=== PATIENT | female | born 1985 | race Caucasian/White ===

== ENCOUNTER → 2017-10-31 16:01 | Outpatient (CLI) | payer BC, SELFPAY ==
[2017-10-08 14:04] VITALS: BP 123/83; BMI 33.6
[2017-11-06 12:46] LABS: PARVOVIRUS B19 IGG 4.5 index (0.0-0.8); PARVOVIRUS B19 IGM 0.1 index (0.0-0.8)
== END ==
PROVIDERS: Visit Provider Obstetrics & Gynecology
DX: Z20.828 Contact with and (suspected) exposure to other viral communicable diseases (principal)
CPT/HCPCS: 36415; 86747

== ENCOUNTER → 2017-11-29 15:26 | Outpatient (CLI) | payer BC, SELFPAY ==
[2017-11-29 16:17] LABS: Absolute Lymphocyte Count 1.95 X10^3/ul (0.83-4.51); Absolute Neutrophil Count 10.7 X10^3/uL (2.0-7.7); Basophil# 0.04 X10^3/uL; Basophil% 0.3 % (0-1); Eosinophil# 0.17 X10^3/uL; Eosinophils% 1.2 % (0-5); Hemoglobin 12.2 g/dl (12.0-15.0); Lymphocyte # 1.95 X10^3/ul (4.0); Lymphocyte % 13.9 % (19-41); Mean Corpuscular Hgb 28.4 pg (27.0-32.0); Mean Corpuscular Volume 86.2 fL (81-99); Mean Platelet Vol. 10.2 fl (6.2-12.0); Monocyte# 0.96 X10^3/uL; Monocyte% 6.9 % (0-10); Neutrophil % 76.6 % (47-70); Platelet Count 281 K/mm3 (150-450); RBC Distribution Width CV 14.7 % (11.6-14.6); RBC Distribution Width SD 45.2 fl (35.1-43.9); Red Blood Count 4.29 M/mm3 (4.2-5.4)
[2017-11-29 16:18] LABS: POSITIVE COUNT NO; POSITIVE DIFFERENTIAL NO; POSITIVE MORPHOLOGY NO
[2017-11-29 16:45] LABS: Glucose Challenge Gest 1H 50g 104 mg/dL (70-140)
== END ==
PROVIDERS: Visit Provider Obstetrics & Gynecology
DX: O09.A0 Supervision of pregnancy with history of molar pregnancy, unspecified trimester (principal); Z3A.00 Weeks of gestation of pregnancy not specified
CPT/HCPCS: 36415; 82950; 85025

== ENCOUNTER 2017-12-13 16:49 | Emergency (ER) | payer BC, SELFPAY ==
[2017-12-13 16:50] VITALS: BP 155/86; PULSE 101; RESP 18; TEMP 37; O2SAT 99; BMI 34.9
--- NOTE | 2017-12-13 16:56 | NURSING ---
NO OLD EKGS
--- NOTE | 2017-12-13 17:08 | EKG12_ITS ---
Test Reason : PALPS Blood Pressure : / mmHG Vent. Rate : 085 BPM Atrial Rate : 085 BPM P-R Int : 166 ms QRS Dur : 078 ms QT Int : 368 ms P-R-T Axes : 027 026 004 degrees QTc Int : 437 ms Normal sinus rhythm Normal ECG Confirmed by RENE ALVARADO MD ([id number]), online content editor DIXIE BRIGHT ([id number]) on 12/14/2017 2:29:05 PM Referred By: SAL Confirmed By:RENE ALVARADO MD
--- NOTE | 2017-12-13 17:14 | NURSING ---
NO OLD EKGS
--- NOTE | 2017-12-13 17:33 | ED.VISSUMM ---
- ER Visit Summary Date of Service: 12/13/17 Chief Complaint: Heart racing History of Present Illness: The patient is a 32 F presents to the emergency department with racing heart. The patient is currently approximately 30 weeks . She states about 3 or 4 weeks ago, she was in class and had the sensation as of her heart was racing. She states another friend took her pulse and was in the 180s. It resolved after about 2 minutes. Today, it happened again. She was actually at her PHYSICIAN GYNECOLOGIST's office. They did take her pulse and was 186. She states it lasted about 5 minutes. She states that she bear down and held her breath and the symptoms resolved. She has had no chest pain or dyspnea. She denies any history of coronary vascular disease. She states she has never had anything like this before her prior pregnancies. She states it feels like she is back to her normal self. Physical Examination: Vital signs reviewed General: Well-nourished, well-developed Head: Normocephalic, atraumatic Eyes: Pupils equal and reactive, extraocular muscles intact Neck, supple, no lymphadenopathy Heart: Regular rate and rhythm Respiratory: No distress, clear bilaterally Abdomen: Soft, nontender, nondistended, no peritoneal signs Back: Nontender Extremities: Nontender, no edema, no cords Skin: Normal color no rash Neuro: Alert and oriented, no focal or lateralizing deficits Test Results: EKG demonstrates sinus rhythm at a rate of 85. Screening labs show mild leukocytosis but otherwise unremarkable. Chest x-ray unremarkable. Emergency Department Course and Treatment: The patient presents with reported heart racing. My concern was for SVT, but she has maintained sinus rhythm while here. Her metabolic workup is unremarkable. I discussed the patient with Dr. Rivera. Given her history, he was comfortable with my plan for Holter monitor. We are going to hold on medications given her advanced . The patient was also discussed with Dr. Sharan Carson who is aware of the plan. At this time, I do for the patient is safe for discharge. She has had no other symptoms. She is not dyspneic. She was counseled on concerning symptoms and reasons to return. The patient will be discharged home. Treatment Plan: [] Disposition: Discharge Impression: 1. Tachycardia-resolved This note was generated with Illumite[employer]ation software. It may contain incorrect words, spelling, and punctuation that were not noted in review of the chart prior to signing ED Disposition - Plan for ED Patient: Chief Complaint: Palpitations Instructions: ED Tachycardia Pat PSVT Referrals: Melba Andrea MD [STAFF PHYSICIAN] -
--- NOTE | 2017-12-13 17:33 | NURSING ---
PAGED DR OSMAN
--- NOTE | 2017-12-13 17:40 | RAD_ITS ---
STUDY: X-RAY CHEST REASON FOR EXAM: Female, 32 years old. SENT FROM DR WATSON'S OFFICE FOR HR 186. DENIES HX. PATIENT 30 WEEKS , WRAP AROUND WAIST SHIELD USED AND ROLLING WAIST SHIELD TECHNIQUE: PA and lateral views of the chest. COMPARISON: None. FINDINGS: Cardiac monitoring leads are present. Low lung lines are noted. There is mild hypoventilatory change seen at the lung bases. There is no evidence of interstitial or alveolar edema. There is no demonstrated pleural abnormality. Normal size heart. Normal mediastinum and mary. Normal visualized pulmonary arteries. Normal visualized aortic arch and descending thoracic aorta. Normal visualized thoracic spine. Normal visualized ribs, clavicles, and shoulders. There is no demonstrated abnormality of the visualized soft tissue structures of the upper abdomen. RAD/Chest PA and Lateral IMPRESSION: Low lung volumes. No evidence of failure. Normal heart size. Electronically Signed: Adenike Correa MD at 18:09 EDT Tel , Service support ,
[2017-12-13 17:50] LABS: ALB/GLOB Ratio 0.7 RATIO (0.9-2.4); AST(SGOT) 14 U/L (15-37); Alanine Aminotransfer ALT/SGPT 19 U/L (13-56); Albumin, Serum 2.8 g/dL (3.2-5.0); Alkaline Phosphatase 80 U/L (45-117); Anion Gap 9 (5-15); BUN 9 mg/dL (7-18); BUN/Creat Ratio 17.7 RATIO (10-20); Calcium,Total 9.3 mg/dL (8.5-10.1); Chloride 105 mmol/L (98-107); Creatinine, Serum 0.51 mg/dL (0.55-1.02); EST Glomerular Filtration Rate 147 mL/min (>60); Est Glom Filt Rate - Afr Amer 178 mL/min (>60); Estimated Creatinine Clearance 156.79 ml/min; Globulin 4.3 g/dL (2.2-4.2); Glucose 72 mg/dL (74-106); Potassium 3.8 mmol/L (3.5-5.1); Protein, Total 7.1 g/dL (6.4-8.2); Sodium Level 137 mmol/L (136-145); Thyroid Stim Hormone (TSH) 1.95 uIU/mL (0.358-3.74)
[2017-12-13 17:54] LABS: Absolute Lymphocyte Count 2.17 X10^3/ul (0.83-4.51); Absolute Neutrophil Count 13.9 X10^3/uL (2.0-7.7); Basophil# 0.06 X10^3/uL; Basophil% 0.3 % (0-1); Eosinophil# 0.18 X10^3/uL; Hematocrit 40.8 % (37-47); Hemoglobin 13.7 g/dl (12.0-15.0); Lymphocyte # 2.17 X10^3/ul (4.0); Lymphocyte % 12.2 % (19-41); Mean Corp Hgb Conc 33.6 g/gl (32-36); Mean Corpuscular Hgb 28.6 pg (27.0-32.0); Mean Corpuscular Volume 85.2 fL (81-99); Mean Platelet Vol. 10.4 fl (6.2-12.0); Monocyte# 1.22 X10^3/uL; Monocyte% 6.9 % (0-10); Neutrophil # 13.93 X10^3/uL (2.7-7.7); Neutrophil % 78.5 % (47-70); Platelet Count 321 K/mm3 (150-450); RBC Distribution Width CV 14.6 % (11.6-14.6); RBC Distribution Width SD 43.9 fl (35.1-43.9); Red Blood Count 4.79 M/mm3 (4.2-5.4); White Blood Count 17.8 K/mm3 (4.4-11.0)
[2017-12-13 17:55] LABS: POSITIVE COUNT NO; POSITIVE DIFFERENTIAL NO; POSITIVE MORPHOLOGY NO
[2017-12-13 18:39] VITALS: BP 147/74; PULSE 93; RESP 20; O2SAT 99
== END 2017-12-13 18:40 | disposition home or self-care (01) ==
PROVIDERS: Emergency Provider Emergency Medicine; Family Provider Nurse Practitioner; PCP Nurse Practitioner
DX: O99.413 Diseases of the circulatory system complicating pregnancy, third trimester (principal); R00.0 Tachycardia, unspecified; Z79.899 Other long term (current) drug therapy; Z3A.30 30 weeks gestation of pregnancy
CPT/HCPCS: 71046; 80053; 83735; 84443; 85025; 93005; 93225; 96360; 99284; J7030; J7040

== ENCOUNTER → 2017-12-13 18:04 | Outpatient (CLI) | payer BC, SELFPAY | PROVIDERS: Family Provider Nurse Practitioner; PCP Nurse Practitioner; Visit Provider Emergency Medicine | DX: Z00.00 Encounter for general adult medical examination without abnormal findings (principal) ==

== ENCOUNTER → 2017-12-13 18:36 | Outpatient (CLI) | payer BC, SELFPAY ==
--- NOTE | 2017-12-13 18:41 | US_ITS ---
STUDY: SECOND AND THIRD TRIMESTER OBSTETRICAL ULTRASOUND - LIMITED REASON FOR EXAM: Female, 32 years old. growth LMP: October 08, 2017 PRIOR ULTRASOUND: Prior comparison studies are not available for review at this time. TECHNIQUE: Transabdominal ultrasound evaluation was performed. FINDINGS: There is a single intrauterine fetus. The fetus is in a cephalic presentation. There is demonstrated cardiac activity with a heart rate of 128 bpm. There is a normal amniotic fluid volume. The largest amniotic fluid pocket measures 5.5 x 3.4 cm. The amniotic fluid index (NONA) is 15.73 cm. The placenta is posterior in location and is not low lying. There are Grade 1 placental changes. The cervix measures 4.3 cm in length. BIOMETRY: BPD: 7.81 cm: 31 weeks, 3 days HC: 28.89 cm: 31 weeks, 6 days AC: 27.24 cm: 31 weeks, 3 days FL: 6.06 cm: 31 weeks, 4 days Age by LMP: 30 weeks, 3 days. MAGGIE by LMP: February 18, 2018. MAGGIE by prior US: February 14, 2018. age by current US: 31 weeks, 4 days. MAGGIE by current US: February 10, 2018. Estimated weight: 1764 grams, +/- 258 grams, 72 percentile. US/OB Limited With Biometrics IMPRESSION: Live intrauterine gestation of approximately 31 weeks 4 days with expected intrauterine growth. Estimated date of delivery by ultrasound February 10, 2018 Electronically Signed: Adenike Correa MD at 22:25 EDT Tel , Service support ,
== END ==
PROVIDERS: Family Provider Nurse Practitioner; PCP Nurse Practitioner; Visit Provider Nurse Practitioner Women's Health
DX: O28.1 Abnormal biochemical finding on antenatal screening of mother (principal); O09.A0 Supervision of pregnancy with history of molar pregnancy, unspecified trimester; Z3A.00 Weeks of gestation of pregnancy not specified
CPT/HCPCS: 76816

== ENCOUNTER 2018-01-03 16:55 | Outpatient (CLI) | payer BC, SELFPAY ==
[2018-01-03 17:03] VITALS: BMI 35.5
[2018-01-03 17:50] LABS: Hematocrit 40.3 % (37-47); Hemoglobin 13.1 g/dl (12.0-15.0); Mean Corp Hgb Conc 32.5 g/gl (32-36); Mean Corpuscular Hgb 28.1 pg (27.0-32.0); Mean Corpuscular Volume 86.3 fL (81-99); Mean Platelet Vol. 10.3 fl (6.2-12.0); Platelet Count 293 K/mm3 (150-450); RBC Distribution Width CV 14.1 % (11.6-14.6); RBC Distribution Width SD 43.8 fl (35.1-43.9); Red Blood Count 4.67 M/mm3 (4.2-5.4); White Blood Count 14.9 K/mm3 (4.4-11.0)
[2018-01-03 17:53] LABS: Scan Indicated on CBC? Y/N NO
[2018-01-03] MEDS: Betamethasone/Betamethasone 30 MG/5 ML Vial 12 MG IM (18:09)
[2018-01-03 18:16] LABS: AST(SGOT) 14 U/L (15-37); Alanine Aminotransfer ALT/SGPT 16 U/L (13-56); Creatinine, Serum 0.63 mg/dL (0.55-1.02); EST Glomerular Filtration Rate 115 mL/min (>60); Est Glom Filt Rate - Afr Amer 139 mL/min (>60); Estimated Creatinine Clearance 126.93 ml/min; Uric Acid 2.8 mg/dL (2.6-6.0)
[2018-01-03 18:38] LABS: Prothrombin Time (Protime)PT. 12.9 SECONDS (11.7-14.9)
[2018-01-03 18:39] LABS: Partial Thromboplast Time 27.5 Seconds (24.1-36.2)
[2018-01-03 19:27] LABS: Protein, Urine (Random) 6.9 mg/dL (<11.9); Protein:Creat Ratio 140 mg/g CRE (0-200)
--- NOTE | 2018-01-05 00:46 | OB.TRI.HP_ITS ---
History of Present Illness Date of Service: 01/03/18 Was patient seen by the physician?: Yes Reason For Visit: [facility] Date of Service: 01/03/18 Final MAGGIE: 02/17/18 Gestational age: 33 Weeks and 6 Days History of Present Illness: 32 yo @ 33w4d presents with elevated bps. no montiel bv normal labs negative proteinuria Home Medications Medication Instructions Recorded azathioprine 50 mg tablet 100 mg PO QDAY 09/13/17 1 tab PO QDAY 09/13/17 vitamin,calcium,kpmyomvq-xnsp-ywmdr acid tablet sertraline 50 mg tablet 50 mg PO QDAY 09/13/17 Allergies cephalexin [From Keflex] Allergy (Mild, Verified 01/03/18 17:52) Upset Stomach - Pertinent Past Medical History Pertinent Past Medical History: Past Medical History (Last Reviewed 01/03/18 @ 16:26 by Marina Rodriguez) Anxiety and depression (Acute) PTSD (post-traumatic stress disorder) (Acute) Past Surgical History (Last Reviewed 01/03/18 @ 16:26 by Marina Rodriguez) H/O dilation and curettage (Acute) ROS: general: negative 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
== END 2018-01-03 19:45 | disposition home or self-care (01) ==
LOC: WPOUT 17:01 → WP 17:02
PROVIDERS: Family Provider Nurse Practitioner; PCP Nurse Practitioner; Visit Provider Obstetrics & Gynecology
DX: O26.893 Other specified pregnancy related conditions, third trimester (principal); R03.0 Elevated blood-pressure reading, without diagnosis of hypertension; O99.343 Other mental disorders complicating pregnancy, third trimester; F32.9 Major depressive disorder, single episode, unspecified; F41.9 Anxiety disorder, unspecified; F43.11 Post-traumatic stress disorder, acute; X58.XXXA Exposure to other specified factors, initial encounter; Z3A.33 33 weeks gestation of pregnancy
CPT/HCPCS: 36415; 59025; 59050; 82565; 82570; 84156; 84450; 84460; 84550; 85027; 85610; 85730; 99218; A4216; G0378; J0702

== ENCOUNTER → 2018-01-04 17:59 | Outpatient (CLI) | payer BC, SELFPAY ==
[2018-01-04 18:11] VITALS: BMI 35.5
[2018-01-04] MEDS: Betamethasone/Betamethasone 30 MG/5 ML Vial 12 MG IM (18:27)
--- NOTE | 2018-01-05 00:47 | OB.TRI.NOTE ---
History of Present Illness Date of Service: 01/04/18 Was patient seen by the physician?: No Reason For Visit: CELESTONE SHOT Home Medications Medication Instructions Recorded azathioprine 50 mg tablet 100 mg PO QDAY 09/13/17 1 tab PO QDAY 09/13/17 vitamin,calcium,nxnjdugb-leto-jbypd acid tablet sertraline 50 mg tablet 50 mg PO QDAY 09/13/17 Allergies cephalexin [From Keflex] Allergy (Mild, Verified 01/03/18 17:52) Upset Stomach Impression/Plan celestone shot
== END ==
PROVIDERS: Family Provider Nurse Practitioner; PCP Nurse Practitioner; Visit Provider Obstetrics & Gynecology
DX: O26.893 Other specified pregnancy related conditions, third trimester (principal); R03.0 Elevated blood-pressure reading, without diagnosis of hypertension
CPT/HCPCS: 96372; 99218; G0378; J0702

== ENCOUNTER → 2018-01-10 17:16 | Outpatient (CLI) | payer BC, SELFPAY ==
[2018-01-10 17:34] LABS: Protein, Urine (Random) 12.1 mg/dL (<11.9); Protein:Creat Ratio 238 mg/g CRE (0-200)
== END ==
PROVIDERS: Family Provider Nurse Practitioner; PCP Nurse Practitioner; Visit Provider Obstetrics & Gynecology
DX: O28.1 Abnormal biochemical finding on antenatal screening of mother (principal)
CPT/HCPCS: 82570; 84156

== ENCOUNTER 2018-01-14 18:45 | Outpatient (CLI) | payer BC, SELFPAY ==
[2018-01-14 19:17] VITALS: BMI 35.6
[2018-01-14] MEDS: 0.9% Saline Lock 10 ML Syringe IV (19:20)
[2018-01-14 19:56] LABS: Protein, Urine (Random) 27.4 mg/dL (<11.9); Protein:Creat Ratio 133 mg/g CRE (0-200)
[2018-01-14 20:01] LABS: AST(SGOT) 40 U/L (15-37); Alanine Aminotransfer ALT/SGPT 21 U/L (13-56); Creatinine, Serum 0.72 mg/dL (0.55-1.02); EST Glomerular Filtration Rate 98 mL/min (>60); Est Glom Filt Rate - Afr Amer 119 mL/min (>60); Estimated Creatinine Clearance 111.06 ml/min; Uric Acid 3.4 mg/dL (2.6-6.0)
[2018-01-14 20:04] LABS: Hematocrit 39.4 % (37-47); Mean Corpuscular Hgb 28.4 pg (27.0-32.0); Mean Platelet Vol. 10.4 fl (6.2-12.0); Platelet Count 312 K/mm3 (150-450); RBC Distribution Width CV 14.3 % (11.6-14.6); RBC Distribution Width SD 44.2 fl (35.1-43.9); Red Blood Count 4.58 M/mm3 (4.2-5.4); White Blood Count 14.1 K/mm3 (4.4-11.0)
[2018-01-14 20:06] LABS: Partial Thromboplast Time 26.3 Seconds (24.1-36.2); Prothrombin Time (Protime)PT. 12.7 SECONDS (11.7-14.9); Scan Indicated on CBC? Y/N NO
[2018-01-14] MEDS: Labetalol 100 MG Tablet PO (20:22)
[2018-01-15] MEDS: 0.9% Saline Lock 10 ML Syringe IV (06:05)
[2018-01-15 06:49] LABS: Hematocrit 38.1 % (37-47); Hemoglobin 12.5 g/dl (12.0-15.0); Mean Corp Hgb Conc 32.8 g/gl (32-36); Mean Corpuscular Hgb 28.2 pg (27.0-32.0); Mean Platelet Vol. 10.4 fl (6.2-12.0); Platelet Count 297 K/mm3 (150-450); RBC Distribution Width CV 14.2 % (11.6-14.6); RBC Distribution Width SD 43.8 fl (35.1-43.9); Red Blood Count 4.43 M/mm3 (4.2-5.4)
[2018-01-15 06:51] LABS: Scan Indicated on CBC? Y/N NO
[2018-01-15 06:54] LABS: Protein:Creat Ratio 144 mg/g CRE (0-200)
[2018-01-15 07:18] LABS: AST(SGOT) 15 U/L (15-37); Alanine Aminotransfer ALT/SGPT 18 U/L (13-56); Creatinine, Serum 0.63 mg/dL (0.55-1.02); EST Glomerular Filtration Rate 115 mL/min (>60); Est Glom Filt Rate - Afr Amer 139 mL/min (>60); Estimated Creatinine Clearance 126.93 ml/min; Uric Acid 3.3 mg/dL (2.6-6.0)
--- NOTE | 2018-01-15 08:00 | US_ITS ---
STUDY: SECOND AND THIRD TRIMESTER OBSTETRICAL ULTRASOUND - LIMITED REASON FOR EXAM: Female, 32 years old. Growth. LMP: May 05, 2017. PRIOR ULTRASOUND: December 13, 2017. TECHNIQUE: Transabdominal ultrasound evaluation was performed. FINDINGS: There is a single intrauterine fetus. The fetus is in a cephalic presentation. There is demonstrated cardiac activity with a heart rate of 123 bpm. There is a normal amniotic fluid volume. The largest amniotic fluid pocket measures 6.2 cm. The amniotic fluid index (NONA) is 15.3 cm. The placenta is fundal in location. There are Grade 2 placental changes. The cervix measures 4.6 cm in length. BIOMETRY: BPD: 8.9 cm: 36 weeks, 1 days HC: 32.6 cm: 37 weeks, 0 days AC: 31.8 cm: 35 weeks, 6 days FL: 7.05 cm: 36 weeks, 1 days Age by LMP: 35 weeks, 1 days. MAGGIE by LMP: February 18, 2018. age by prior US: 36 weeks, 2 days. MAGGIE by prior US: February 10, 2018. age by current US: 36 weeks, 2 days. MAGGIE by current US: February 10, 2018. Estimated weight: 2820 grams, +/- 412 grams, 72 percentile. Gender: Indeterminate US/OB Limited With Biometrics IMPRESSION: Viable, guadalupe, cephalic presentation intrauterine with appropriate interval growth. Please see above. Electronically Signed: Steve Washington MD at 11:25 EDT , Service support ,
--- NOTE | 2018-01-15 08:36 | OB.TRI.HP_ITS ---
History of Present Illness Date of Service: 01/14/18 Was patient seen by the physician?: Yes Reason For Visit: R/O PRE ECLAMPSIA Date of Service: 01/15/18 Final MAGGIE: 02/18/18 Gestational age: 35 Weeks and 1 Days History of Present Illness: 32 yo @ 35 weeks with gestational hypertension 1. elevated bps- started on labetalol, repeat labs WNL no proteinuria 2. growth us today will dc home fu on , continue home bp checks Home Medications Medication Instructions Recorded azathioprine 50 mg tablet 100 mg PO QDAY 09/13/17 1 tab PO QDAY 09/13/17 vitamin,calcium,eeddmnlw-llep-jrbuf acid tablet sertraline 50 mg tablet 50 mg PO QDAY 09/13/17 blood pressure monitor kit See Dose Instructions .ROUTE 01/10/18 .MEDSUPPLY #1 ea Allergies cephalexin [From [employer] Software] Adverse Reaction (Mild, Verified 01/14/18 19:54) Upset Stomach
[2018-01-15] MEDS: Labetalol 100 MG Tablet PO (09:04)
== END 2018-01-15 12:15 | disposition home or self-care (01) ==
LOC: WPOUT 18:56 → WP 19:15
PROVIDERS: Family Provider Nurse Practitioner; PCP Nurse Practitioner; Visit Provider Obstetrics & Gynecology
DX: O13.3 Gestational [pregnancy-induced] hypertension without significant proteinuria, third trimester (principal); Z3A.35 35 weeks gestation of pregnancy
CPT/HCPCS: 36415; 59025; 59050; 76816; 82565; 82570; 84156; 84450; 84460; 84550; 85027; 85610; 85730; 99218; A4216; G0378

== ENCOUNTER → 2018-01-17 17:04 | Outpatient (CLI) | payer BC, SELFPAY ==
[2018-01-17 18:21] LABS: Protein, Urine (Random) 13.3 mg/dL (<11.9); Protein:Creat Ratio 191 mg/g CRE (0-200)
== END ==
PROVIDERS: Visit Provider Obstetrics & Gynecology
DX: O13.9 Gestational [pregnancy-induced] hypertension without significant proteinuria, unspecified trimester (principal)
CPT/HCPCS: 82570; 84156

== ENCOUNTER → 2018-02-01 17:47 | Outpatient (CLI) | payer BC, SELFPAY ==
[2018-02-01 18:43] LABS: Group B Strep DNA By PCR Negative (Negative); Internal Control PASS; Probe Check PASS; Specimen Processing Control PASS
== END ==
PROVIDERS: Family Provider Nurse Practitioner; PCP Nurse Practitioner; Visit Provider Obstetrics & Gynecology
DX: O09.A0 Supervision of pregnancy with history of molar pregnancy, unspecified trimester (principal); Z3A.00 Weeks of gestation of pregnancy not specified
CPT/HCPCS: 87081; 87653

== ENCOUNTER 2018-02-03 07:20 | Inpatient (IN) | payer BC, SELFPAY ==
[2018-02-03] MEDS: 0.9% Saline Lock 10 ML Syringe IV (07:35)
[2018-02-03 07:47] VITALS: BMI 35.9
[2018-02-03 07:55] LABS: Hematocrit 39.2 % (37-47); Hemoglobin 13.2 g/dl (12.0-15.0); Mean Corp Hgb Conc 33.7 g/gl (32-36); Mean Corpuscular Hgb 28.4 pg (27.0-32.0); Mean Corpuscular Volume 84.5 fL (81-99); Mean Platelet Vol. 10.3 fl (6.2-12.0); Platelet Count 310 K/mm3 (150-450); RBC Distribution Width CV 14.5 % (11.6-14.6); RBC Distribution Width SD 43.9 fl (35.1-43.9); Red Blood Count 4.64 M/mm3 (4.2-5.4); Scan Indicated on CBC? Y/N NO; White Blood Count 10.8 K/mm3 (4.4-11.0)
--- NOTE | 2018-02-03 08:23 | HP.PCM_ITS ---
- Problem List (1) Gestational hypertension Status: Acute Qualifiers: Comment: labetalol 200 BID, check bps at home, weekly visit/nst, growth us WNL, deliver at 37-38 weeks (2) Tachycardia Status: Acute Comment: labetalol, s/p cardio consult (3) Encounter for supervision of with history of molar Status: Acute Comment: PRR MAGGIE 02/17/18 gender surprise PC Ryder Ogden Kennedy (4) Anxiety Status: Acute Comment: zoloft (5) Abnormal biochemical finding on screening of mother Status: Acute Comment: elevated hcg on sequential screen- recommend serial growth us in third trimester History Date of Admission: 02/03/18 Final MAGGIE: 02/17/18 Gestational age: 38 Weeks and 0 Days History of this : 32 yo @ 38 weeks prsents for IOL secondary GHTN controlled with 200mg labetalol BID. 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 Date Name GA/Weeks Outcome Route Bth Weight Infant Gen Labor Lgth Anesthesia Del Locatn Provider FOB Unknown 2009 Melvi 40 live - full term Female Baugh Unknown 2012 Ryder 39 live - full term Female Baugh Allergies cephalexin [From Keflex] Adverse Reaction (Mild, Verified 02/03/18 07:47) Upset Stomach Smoking Status: Current every day smoker Alcohol: None Drug Use: none Number of Fetus(es): 1 - fht 140s moderate variability reacitve Review of Systems Constitutional: Denies: Chills, Fever, Weight Change HEENT: Denies: Head Aches, Sinus Congestion, Sinus Drainage Cardiovascular: Denies: Chest Pain, Palpitations Respiratory: Denies: Cough, Shortness of breath at rest, Sputum production Gastrointestinal: Denies: Abdominal Pain, Nausea, Vomiting Genitourinary: Denies: Dysuria Musculoskeletal: Denies: Joint Pain, Joint Tenderness Skin: Denies: Rash, Wounds Neurological: Denies: Numbness, Tingling, Focal weakness Psychiatric: Denies: Anxiety, Depression, Homicidal Ideations, Suicidal Ideations Hematologic/ Lymphatic: Denies: Easy Bruising, Easy Bleeding Physical Exam General: Alert, Oriented x3, No apparent distress Cardiovascular: Regular rate Lungs: Normal air movement Abdomen: Gravid Estimated gestational size: Appropriate for gestational size Presentation: Cephalic Cervix Dilation (cm): 0.5 Station: -3 Effacement (%): 40 Assessment/Plan 32 yo @ 38 weeks presents for IOL GHTN continue labetalol 200mg BID cytotec then pitocin for IOL GBS neg
[2018-02-03] MEDS: miSOPROStol 25 MCG TABLET VAGINAL ×2 (08:58→13:28)
[2018-02-03 09:47] LABS: ALB/GLOB Ratio 0.6 RATIO (0.9-2.4); AST(SGOT) 15 U/L (15-37); Alanine Aminotransfer ALT/SGPT 19 U/L (13-56); Albumin, Serum 2.6 g/dL (3.2-5.0); Alkaline Phosphatase 99 U/L (45-117); Anion Gap 9 (5-15); BUN 12 mg/dL (7-18); BUN/Creat Ratio 17.6 RATIO (10-20); Calcium,Total 9.1 mg/dL (8.5-10.1); Chloride 109 mmol/L (98-107); Creatinine, Serum 0.68 mg/dL (0.55-1.02); EST Glomerular Filtration Rate 105 mL/min (>60); Est Glom Filt Rate - Afr Amer 127 mL/min (>60); Estimated Creatinine Clearance 117.59 ml/min; Globulin 4.1 g/dL (2.2-4.2); Glucose 106 mg/dL (74-106); Potassium 3.7 mmol/L (3.5-5.1); Protein, Total 6.7 g/dL (6.4-8.2); Sodium Level 139 mmol/L (136-145)
[2018-02-03] MEDS: 0.9% Normal Saline 100 ML IV.SOLN. INTRA-UTER (18:05)
--- NOTE | 2018-02-03 18:10 | PCM.PN.BLA ---
Progress Note doing well made cervical change to 1 cm and softer, fb placed, start pit per protocol. bps well controlled. reassuring FHT category I tracing
[2018-02-03] MEDS: Lactated Ringers 1,000 ML 50 ML IV (18:20)
[2018-02-03] MEDS: Oxytocin 30 units/NS 500 ml 30 UNITS/500 ML IV.SOLN IV (18:20)
[2018-02-03] MEDS: Sertraline 50 MG Tablet PO (20:25)
[2018-02-03] MEDS: azaTHIOprine 50 MG Tablet PO (20:25)
[2018-02-04] VITALS (7 sets, daily range): BP systolic 111–144; BP diastolic 67–77; PULSE 65–86; RESP 16–18; TEMP 36.2–37.1; O2SAT 97
[2018-02-04] MEDS: Lactated Ringers 1,000 ML 50 ML IV (01:58)
--- NOTE | 2018-02-04 03:02 | PCM.PN.BLA ---
Progress Note arom clear fluid, s/p epi getting comfortable. fht category I tracing, pitocin off for tachysystole, will restart if no cervical change. exp management.
[2018-02-04] MEDS: Oxytocin 30 units/NS 500 ml 30 UNITS/500 ML IV.SOLN 334 UNITS IV (03:07)
[2018-02-04] MEDS: Morphine 4 MG/ML Syringe IV (03:10)
--- NOTE | 2018-02-04 03:33 | PCM.OPRPT ---
Problem List (1) Gestational hypertension Status: Acute Qualifiers: Comment: labetalol 200 BID, check bps at home, weekly visit/nst, growth us WNL, deliver at 37-38 weeks (2) Tachycardia Status: Acute Comment: labetalol, s/p cardio consult (3) Encounter for supervision of with history of molar Status: Acute Comment: PRR MAGGIE 02/17/18 gender surprise PC Ryder Ogden Kennedy (4) Anxiety Status: Acute Comment: kaeoft (5) Abnormal biochemical finding on screening of mother Status: Acute Comment: elevated hcg on sequential screen- recommend serial growth us in third trimester Report of Operation Date of Procedure: 02/04/18 Pre-Operative Diagnosis: iol GHTN Post-Operative Diagnosis: same Surgery/Procedure Performed:: Type of Anesthesia:: Epidural Special Medications: crystalloid Specimen's removed: fetus vertex Estimated Blood Loss (mL): 100 Description of Procedure: Patient made precipitous change to 7 cm and began pushing and delivered the head in the EDWARD presentation. The head was delivered atraumatically. The anterior and posterior shoulders delivered without complication followed by the rest of the infant and the was placed on the maternal abdomen. Delayed cord clamping was employed for approximately 60 seconds. Cord was clamped and cut and gentle traction was applied to the cord and the placenta delivered spontaneously immediately following it was noted to be intact with three-vessel cord. The perineum and vagina were inspected and noted to have no laceration. EBL was 100 cc. Patient and infant tolerated delivery well. - Complications none
[2018-02-04] MEDS: Oxytocin 30 units/NS 500 ml 30 UNITS/500 ML IV.SOLN 167 UNITS IV (04:15)
--- NOTE | 2018-02-04 10:05 | NURSING ---
7197 pt wondering if she needs to still be on BP med wants me to ask dr valle phone call placed
[2018-02-04] MEDS: Acetaminophen 325 MG Tablet PO (11:23)
[2018-02-04] MEDS: Naproxen 250 MG Tablet PO (15:29)
[2018-02-04] MEDS: Sertraline 50 MG Tablet PO (20:43)
[2018-02-04] MEDS: azaTHIOprine 50 MG Tablet PO (20:43)
[2018-02-05 00:10] VITALS: BP 139/50; PULSE 70; RESP 18; TEMP 36.6; O2SAT 97
[2018-02-05 04:00] VITALS: BP 128/74; PULSE 82; RESP 16; TEMP 36.7
--- NOTE | 2018-02-05 07:38 | PCM.PN.OB ---
Subjective: doing well without concerns. BP normal range. Denies SOB, CP. Ambulating, voiding well. - Physical Exam General: Alert, Oriented x3 Abdomen: Soft, Non Tender, - - FF below U Vital Signs Temp Pulse Resp BP Pulse Ox 98.1 F 82 16 128/74 H 97 02/05/18 04:00 02/05/18 04:00 02/05/18 04:00 02/05/18 04:00 02/05/18 00:10 Oxygen Delivery Method Room Air Weight: 235 lb 14.314 oz Body Mass Index (BMI) 35.9 Medical Necessity - Tobacco Use Smoking Status: Current every day smoker Assessment/Plan PPD #2: Routine care. BPs normal range. Possible home today if discharged (hypoglycemia). .
[2018-02-05 07:45] VITALS: BP 147/76; PULSE 78; RESP 16; TEMP 36.6; O2SAT 99
[2018-02-05 13:54] VITALS: BP 140/76; PULSE 80; RESP 16; TEMP 36.2; O2SAT 99
--- NOTE | 2018-02-05 14:45 | CASEMGMT ---
Social Work - Brief assessment Labor and Delivery Unit Date of Referral/Notification: 02/04/18 Time of Referral: 0740 Referred By: Dr. Miranda, director of sustainable design Reason for Referral: maternal history of mental health Date of Intervention: 02/05/2018 Time of Intervention: 1445 Informant: Medical record and mother of baby (MOB) Khadra Cannon; father of baby (FOB) Kennedy Cannon also present History: MOB is G4, P2 to 3 after delivering infant Concepción Cannon. MOB and FOB are , and have 2 older children besides Concepción. Older children are Melvi, born in 2009 and Kinslee, born in 2012. MOB and FOB are both gainfully employed. 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 MOB reports to have good support from FOB, from MOBs family and FOBs side of the family. MOB reports to have needed infant supplies. MOB reports history of anxiety, depression, and PTSD. No reports of any history of self harm. MOB reports to have awareness when starting to have a hard time and FOB is helpful in supporting MOB when needed. MOB reports currently treated with Zoloft and intends to stay on this in the period. No identified or indication of any substance use or abuse for MOB. MOB denies any history of children services involvement. Assessment: MOB pleasant, friendly, cooperative with social work visit and expressed thought it is nice that a social service worker is checking in on families while in the hospital. MOB reports to have good support, to have supplies, and denies any needs for home going. FOB will be at home to help. No reported or identified needs for [facility] or other social service agency supports. MOB reports awareness of risk for period and accepting of resources information offered by social service worker today. Packet about depression and anxiety, tips on self-care, online resources, and local supports given. MOB held good eye contact, spontaneous in conversation, attentive to infant when infant needed attending to. MOB gentle and appropriate in interactions with baby. Plan: MOB and baby to home when ready for discharge. No further needs requested or indicated. -FRANK Pringle, REGIONAL BRANCH MANAGER
--- NOTE | 2018-02-05 17:27 | PCM.DCVAG ---
Discharge Diet: No Restrictions Discharge Activity: Return to Normal Activity, May not drive while taking narcotic pain medications., May Shower May resume sexual activity in: 4-6 weeks Call your doctor if your incision/area has: Continuous Slow Oozing, Sudden Increased Bleeding, Increased Pain/ Swelling, Increased Redness, Foul Smelling Discharge Additional Instructions: If you experience any of the following, contact your healthcare provider. Bleeding that soaks a pad every hour for 2 hours Fever 100.4 or higher Unrelieved incision or abdominal pain Swelling, redness, discharge or bleeding from your incision or episiotomy site Your incision begins to separate Problems urinating (including inability to urinate or burning while urinating). Visual changes Severe headache Flu-like symptoms Pain or redness in one of both of your breasts Pain, warmth, tenderness or swelling in your legs, especially the calf area Frequent nausea and vomiting Symptoms of depression or anxiety If you experience any of the following, call 911 or go to the nearest Emergency Room. Chest pain Problems breathing Seizure activity Partial or complete paralysis of a body part, slurred speech, weakness or drooping of the face, or a sudden inability to walk or hold your balance Allergies/Adverse Reactions: Allergies cephalexin [From Keflex] Adverse Reaction (Mild, Verified 02/03/18 07:47) Upset Stomach Medications to take at Discharge azathioprine 50 mg tablet 100 mg PO QDAY 09/13/17 vitamin,calcium,broyxqxb-yjtk-lhyal acid tablet 1 tab PO QDAY 09/13/17 sertraline 50 mg tablet 50 mg PO QDAY 09/13/17 blood pressure monitor kit See Dose Instructions .ROUTE .MEDSUPPLY #1 ea 01/10/18 Labetalol HCl 200 mg PO BID 02/03/18 Please Follow Up With: Melba Andrea MD - [phone] When: Call to make an appointment with your doctor in 6 weeks. If you had elevated Blood pressure or 4th degree laceration you will need to be seen in 2 weeks. Primary Care Physician: Katie Hayden NP-C [Primary Care Provider] -
--- NOTE | 2018-02-05 17:28 | DCINST_ITS ---
Discharge Diet: No Restrictions Discharge Activity: Return to Normal Activity, May not drive while taking narcotic pain medications., May Shower May resume sexual activity in: 4-6 weeks Call your doctor if your incision/area has: Continuous Slow Oozing, Sudden Increased Bleeding, Increased Pain/ Swelling, Increased Redness, Foul Smelling Discharge Additional Instructions: If you experience any of the following, contact your healthcare provider. * Bleeding that soaks a pad every hour for 2 hours * Fever 100.4 or higher * Unrelieved incision or abdominal pain * Swelling, redness, discharge or bleeding from your incision or episiotomy site * Your incision begins to separate * Problems urinating (including inability to urinate or burning while urinating) . * Visual changes * Severe headache * Flu-like symptoms * Pain or redness in one of both of your breasts * Pain, warmth, tenderness or swelling in your legs, especially the calf area * Frequent nausea and vomiting * Symptoms of depression or anxiety If you experience any of the following, call 911 or go to the nearest Emergency Room. * Chest pain * Problems breathing * Seizure activity * Partial or complete paralysis of a body part, slurred speech, weakness or drooping of the face, or a sudden inability to walk or hold your balance Allergies/Adverse Reactions: Allergies cephalexin [From Keflex] Adverse Reaction (Mild, Verified 02/03/18 07:47) Upset Stomach Medications to take at Discharge azathioprine 50 mg tablet 100 mg PO QDAY 09/13/17 vitamin,calcium,svmczhbo-quvy-frcvv acid tablet 1 tab PO QDAY 09/13/17 sertraline 50 mg tablet 50 mg PO QDAY 09/13/17 blood pressure monitor kit See Dose Instructions .ROUTE .MEDSUPPLY #1 ea Labetalol HCl 200 mg PO BID 02/03/18 Please Follow Up With: Melba Andrea MD - [phone] When: Call to make an appointment with your doctor in 6 weeks. If you had elevated Blood pressure or 4th degree laceration you will need to be seen in 2 weeks. Primary Care Physician: Katie Hayden NP-C [Primary Care Provider] -
[2018-02-05 18:09] VITALS: BP 142/78; PULSE 78; RESP 16; TEMP 36.4; O2SAT 99
== END 2018-02-05 18:30 | disposition home or self-care (01) | DRG 775 ==
PROVIDERS: Admitting Provider Obstetrics & Gynecology; Family Provider Nurse Practitioner; PCP Nurse Practitioner; Visit Provider Obstetrics & Gynecology
DX: O13.4 Gestational [pregnancy-induced] hypertension without significant proteinuria, complicating childbirth (principal); Z3A.39 39 weeks gestation of pregnancy; Z37.0 Single live birth; Z79.899 Other long term (current) drug therapy
CPT/HCPCS: 59025; 59050; 80053; 85027; 86850; 86900; 99218; J7050; J7120; A4216; G0378

== ENCOUNTER → 2023-11-12 | Outpatient (CLI) | payer OTHER, BC, SELFPAY ==
--- OUTSIDE RECORDS SUMMARY | 2023-11-12 18:32 | XMS RPT_ITS | CCD ---
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 Name Role Phone RONAL Rivas RN, Miri Rob Unavailable Unavailphoenix Watson MD, Melba Gay Unavailable [phone] VICKI COHN Unavailable Unavailable MELBA WATSON Unavailable UnavailYURY Fernandez Unavailable Unavailable MELBA WATSON Unavailable Unavailabl MELBA Gonzalez Unavailable Unavailabl YURY Macdonald Unavailable Unavailable VICKI COHN Unavailable Unavailable VICKI COHN Unavailable Unavailable YURY SHULTZ Unavailable Unavailable JUAN CARLOS LOPEZ Unavailable Unavailable MELBA WATSON Unavailable Unavailabl e YURY SHULTZ Unavailable Unavailable JUAN CARLOS LOPEZ Unavailable Unavailable KRADILIA YURY Tatyana Unavailable Unavailable MELBA WATSON Unavailable Unavailabl e KAILA ROUSE Unavailable UnavaYURY [place]chaca Unavailable Unavailable MELBA WATSON Unavailable Unavailabl e Pcp, No Primary Care Provider UnavailYury Fernandez Unavailable Yury Shultz Primary Care Provider [phone] Bassam Manny F Primary Care Provider [phone] LY VAN Referring Unavailable ESPINOZALLA, MANNY F Primary Care Unavailable ANNA VANS H Referring Unavailable PETRILLA, MANNY F Primary Care Unavailable ANNA VANS H Referring Unavailable ESPINOZALLA, MANNY F Primary Care Unavailable Bsasam MCFARLANE Manny F Primary Care Provider Bassam MCFARLANE Manny F Primary Care Provider Manny Banegas DO Primary Care Provider MANNY BANEGAS Attending Unavailable MANNY BANEGAS Primary Care Unavailable Allergies Allergy Classification Reported Allergen(s) Allergy Type Date of Onset Reaction(s) Facility (7 sources) cephalexin Drug Allergy 7 [facility] (6 sources) cephalexin; Translations: [CEPHALEXIN] Drug Allergy 1 Other: See Comments, Anaphylaxis, Rash, Unknown [facility] Repository Medications Current Medications Medication Drug Class(es) Dates Sig (Normalized) Sig (Original) 3 ml liraglutide 6 mg/ml pen injector (3 sources) GLP-1 Receptor Agonist Start: 07-25-2023 inject 0.6 mg by subcutaneous injection once daily, then inject 0.6 mg by subcutaneous injection once daily, then inject 3 mg by subcutaneous injection once daily Liraglutide -Weight Management (Saxenda) 18 MG/3ML solution pen-injector 0.6 mg subcutaneous each day for 1 week then increase by 0.6 mg/day in weekly intervals up until dose of 3 mg/day is achieved. 1 each 07/25/2023 Active Completed/Discontinued Medications Medication Drug Class(es) Dates Sig (Normalized) Sig (Original) azaTHIOprine 50 mg oral tablet (10 sources) Purine Antimetabolite Start: 07-09-2017 IMURAN 50 MG TABS AZATHIOPRINE [id number] Melba Watson MD Problems Active Problems Problem Classification Problem Date Documented Date Episodic/Chronic Anxiety disorders (15 sources) Anxiety; Translations: [Anxiety disorder, unspecified] Onset: 08-07-2017 08-07-2017 Chronic Deficiency and other anemia (1 source) Iron deficiency anemia secondary to blood loss (chronic); Translations: [Iron deficiency anemia secondary to blood loss (chronic)] Onset: 01-26-2022 Chronic Disorders usually diagnosed in infancy, childhood, or adolescence (3 sources) Adult attention deficit hyperactivity disorder ; Translations: [Other specified behavioral and emotional disorders with onset usually occurring in childhood and adolescence] Onset: 11-16-2022 11-16-2022 Chronic Regional enteritis and ulcerative colitis (5 sources) Ulcerative (chronic) pancolitis without complications; Translations: [Ulcerative colitis] Onset: 10-23-2019 07-09-2022 Chronic Past or Other Problems Problem Classification Problem Date Documented Da te Episodic/Chronic Other complications of (20 sources) ultrasound scan abnormal; Translations: [High risk ] Onset: 07-09-2017 Resolved: 08-07-2017 08-07-2017 Episodic Other nutritional; endocrine; and metabolic disorders (2 sources) Other symptoms and signs concerning food and fluid intake; Translations: [Other symptoms and signs concerning food and fluid intake] Onset: 11-16-2022 Episodic Other and delivery including normal (1 source) Normal ; Translations: [Supervision of other normal ] Onset: 07-07-2011 07-07-2011 Episodic Results Test Name Value Interpretation Reference Range Facil ity Vital Signs Date Time Vital Sign Value Performing Clinician Severiano dunham 08-07-2017 16:33-0500 BMI (Body Mass Index) 33.6 kg/m2 Melba Watson MD [facility] 08-07-2017 16:33-0500 BP Diastolic 70 mm[Hg] Melba Watson MD [facility] 08-07-2017 16:33-0500 BP Systolic 129 mm[Hg] Melba Watson MD [facility] 08-07-2017 16:33-0500 Weight 100.25 kg Melba Watson MD [facility] 07-09-2017 15:27-0400 Body Temperature 97.9 [degF] Melba Watson MD [facility] 07-09-2017 15:27-0400 Height 172.72 cm Melba Watson MD [facility] 07-09-2017 15:27-0400 Pulse (Heart Rate) 87 /min Melba Watson MD [facility] 07-09-2017 15:27-0400 Respiratory Rate 16 /min Melba Watson MD [facility] 07-09-2017 15:27-0400 Weight 99.25 kg Melba Watson MD [facility] Encounters Encounter Date Encounter Type Care Provider Facility Start: 07-25-2023 Refill Manny julio DO Work Phone: [facility] Start: 06-19-2023 Telephone encounter Anai Ying [facility] Start: 01-24-2023 Orders Only Manny julio DO Work Phone: [facility] Start: 11-16-2022 End: 11-16-2022 ambulatory MANNY BANEGAS [facility] Start: 07-28-2022 End: 07-29-2022 ambulatory LY H KEFALAS Facility:[facility] Start: 01-26-2022 End: 01-27-2022 ambulatory LY H KEFALAS Facility:[facility] Start: 10-03-2021 End: 10-04-2021 ambulatory LY H KEFALAS Facility:[facility] Start: 08-13-2017 End: 08-13-2017 Ambulatory [address]A DUM[address]LE [facility] Start: 08-06-2017 End: 08-06-2017 Ambulatory [facility] Start: 08-06-2017 End: 08-06-2017 Ambulatory [facility] Start: 07-16-2017 End: 07-17-2017 Ambulatory VICKI T [facility] Start: 07-16-2017 End: 07-16-2017 Ambulatory MELBA WATSON [facility] Start: 05-05-2004 End: 05-05-2004 Patient encounter procedure Eusebia Millan Work Phone: [facility] Start: 05-05-2004 Results Only Eusebia moreno Work Phone: [facility] Procedures Date Procedure Procedure Detail Performing Clinician Start: 08-07-2017 End: 08-13-2017 *CBC with Differential Melba bryan MD Work Phone: Start: 08-07-2017 End: 08-14-2017 *HEBSAG - Hep B Surface Antigen 6510 Melba Watson MD Work Phone: Start: 08-07-2017 End: 08-14-2017 *HIV antibody Melba Watson MD Work Phone: Start: 08-07-2017 End: 08-17-2017 Reagin Ab [Presence] in Serum by RPR Melba Watson MD Work Phone: Start: 08-07-2017 End: 08-07-2017 Routine OB Visit (Global) Melba mars MD Work Phone: Start: 08-07-2017 End: 08-13-2017 Rubella virus Ab [Units/volume] in Serum Melba Watson MD Work Phone: Start: 07-09-2017 End: 07-10-2017 Choriogonadotropin.beta subunit [Units/volume] in Serum or Plasma Melba Watson MD Work Phone: Start: 07-09-2017 End: 07-09-2017 Routine OB Visit (Global) Melba mars MD Work Phone: Start: 07-09-2017 End: 07-09-2017 Us uterus limited 1/> fetuses Melba Watson MD Work Phone: Start: 05-05-2004 CONVERTED SURGICAL PATHOLOGY Eusebia Millan Work Phone: Plan of Treatment Date Care Activity Detail Author Start: 03-23-2029 DTaP/Tdap/Td Vaccines (5 - Td or Tdap) DTaP/Tdap/Td Vaccines (5 - Td or Tdap) [facility] Start: 05-25-2023 Influenza vaccination [facility] Start: 01-22-2023 Urine microalbumin profile DTAP,TDAP,TD (2 - Td) [facility] Start: 05-25-2020 Influenza vaccination INFLUENZA (#1) [facility] Start: 09-06-2017 End: 09-06-2017 Appointment Appointment [facility] Start: 08-07-2017 End: 08-07-2017 Appointment Appointment [facility] Start: 08-07-2017 End: 08-13-2017 *CBC with Differential *CBC with Differential [facility] Start: 08-07-2017 End: 08-14-2017 *HEBSAG - Hep B Surface Antigen 6510 *HEBSAG - Hep B Surface Antigen 6510 [facility] Start: 08-07-2017 End: 08-14-2017 *HIV antibody *HIV antibody [facility] Start: 08-07-2017 End: 08-07-2017 *TS Type and Screen *TS Type and Screen [facility] Start: 08-07-2017 End: 08-17-2017 Reagin antibody presence *RPR [facility] Start: 08-07-2017 End: 08-13-2017 Rubella virus Ab [Units/volume] in Serum *Rubella Screen [facility] Start: 07-09-2017 End: 07-09-2017 *GC/Chlamydia *GC/Chlamydia [facility] Start: 07-09-2017 End: 07-10-2017 HCG.beta subunit Qn *HCGT - HCG Titer Quant., Serum [facility] Start: 07-09-2017 End: 07-09-2017 Urine culture, bacteria *CUUR - Culture, Urine (Murray Count) [facility] Start: 07-08-2017 PAP TESTING PAP TESTING [facility] Start: 2013 HPV TESTING HPV TESTING [facility] Start: 2013 Screening for malignant neoplasm of cervix [facility] Start: 2004 Screening for malignant neoplasm of cervix Pap Smear [facility] Start: 2002 Zoster Vaccines (1 of 2) Zoster Vaccines (1 of 2) [facility] Start: 2001 Hepatitis C screening Hepatitis C Screening [facility] Start: 1995 Depression Screening Depression Screening [facility] Start: 1989 Pneumococcal Vaccine: Pediatrics (0 to 5 Years) and At-Risk Patients (6 to 64 Years) (1 - PCV) Pneumococcal Vaccine: Pediatrics (0 to 5 Years) and At-Risk Patients (6 to 64 Years) (1 - PCV) [facility] Start: 1988 COVID-19 Vaccine (#1) COVID-19 Vaccine (#1) [facility] Start: 1984 MMR Vaccines (1 of 1 - Standard series) MMR Vaccines (1 of 1 - Standard series) [facility] Start: 1984 Varicella vaccination Varicella Vaccines (1 of 2 - 2-dose childhood series) [facility] Start: 04-15-1984 COVID-19 Vaccine (#1) COVID-19 Vaccine (#1) [facility] Start: 1983 Hepatitis B Vaccines (1 of 3 - 3-dose series) Hepatitis B Vaccines (1 of 3 - 3-dose series) [facility] Start: 1983 HIV screening HIV Screening [facility] Start: 1983 Lipid panel Lipid Panel [facility] Immunizations Immunization Date Immunization Notes Care Provider Sirisha tobias 03-23-2019 tetanus toxoid, redu brittanie diphtheria toxoid, and acellular pertussis vaccine, adsorbed Manny Petrilla DO Work Phone: [facility] 11-29-2017 tetanus toxoid, redu brittanie diphtheria toxoid, and acellular pertussis vaccine, adsorbed Manny Petrilla DO Work Phone: [facility] 01-22-2013 tetanus toxoid, redu brittanie diphtheria toxoid, and acellular pertussis vaccine, adsorbed Manny Petrilla DO Work Phone: [facility] 10-09-2012 influenza virus vacc ine, unspecified formulation Manny Espinozalla DO Work Phone: [facility] 08-13-2011 influenza virus vacc ine, unspecified formulation Manny Petrilla DO Work Phone: [facility] 03-30-2011 tetanus toxoid, redu brittanie diphtheria toxoid, and acellular pertussis vaccine, adsorbed Manny Matthewslla DO Work Phone: [facility] Payers Date Payer Category Payer Unknown [id number] 2016 Unknown [employer] [id number] 2016-Present [address] [place] [address] Commercial [id number] 2016 Unknown [id number] Social History Date Type Detail Facility Tobacco smoking stat [facility] Unknown if ever smoked [facility] Start: 1985 Sex Assigned At Not [facility] file [facility] Exposure to SARS-CoV -2 (event) Not sure [facility] Tobacco smoking stat [facility] Never smoked tobacco [facility] Start: 11-16-2022 Alcohol intake Current drinke r of alcohol (finding) [facility] Start: 11-16-2022 History of Social function [facility] Start: 11-16-2022 Tobacco use panel [facility] Telephone encounter Note 07-25-2023 Telephone Encounter - Marie Yanez MA - 07/25/2023 11:09 AM EDT Note Date & Type Note Facility 07-25-2023 Telephone encounter Note Form atting of this note might be different from the original. I didn't realize I was at zero refills and I took my last one today. It would be great if this could be approved TRUDY so I can pick it up after school. Thanks so much! :) [facility] Note 07-25-2023 Telephone Encounter - Marie Yanez MA - 07/25/2023 11:09 AM EDT Note Date & Type Note Facility 07-25-2023 Miscellaneous Notes Formattin g of this note might be different from the original. I didn't realize I was at zero refills and I took my last one today. It would be great if this could be approved TRUDY so I can pick it up after school. Thanks so much! :) documented in this encounter [facility] Clinical Note 06-19-2023 Note Date & Type Note Facility 06-19-2023 Note Called patient to le t her know we received a fax of her lab results but still need some progress notes or other records from her other doctor. Asked her to call the office back. [facility] Telephone encounter Note 06-19-2023 Telephone Encounter - Anai Trent - 06/19/2023 2:40 PM EDT Note Date & Type Note Facility 06-19-2023 Telephone encounter Note Form atting of this note might be different from the original. Called patient to let her know we received a fax of her lab results but still need some progress notes or other records from her other doctor. Asked her to call the office back. [facility] Note 06-19-2023 Telephone Encounter - Anai Trent - 06/19/2023 2:40 PM EDT Note Date & Type Note Facility 06-19-2023 Miscellaneous Notes Formattin g of this note might be different from the original. Called patient to let her know we received a fax of her lab results but still need some progress notes or other records from her other doctor. Asked her to call the office back. documented in this encounter [facility] Summary Purpose Family History No Family History Records FoundNo Family History Records FoundNo Family History Records FoundNo Family History Records Found Advance Directives No Advanced Directives Records FoundNo Advanced Directives Records FoundNo Advanced Directives Records FoundNo Advanced Directives Records Found Additional Source Comments INFORMATION SOURCE (unrecogn ized section and content) DATE CREATED AUTHOR AUTHOR'S ORGANIZ ATION 02/20/2020 [facility] DATE CREATED AUTHOR AUTHOR'S ORGANIZ ATION 07/29/[address] [facility] [place] [facility] DATE CREATED AUTHOR AUTHOR'S ORGANIZ ATION 08/23/2023 [facility] Source Comments (unrecognize d section and content) In the event this informatio n is protected by the Federal Confidentiality of Alcohol and Drug Abuse Patient Records regulations: The Federal rules restrict any use of the information to criminally investigate or prosecute any alcohol or drug abuse patient.[facility] Care Teams (unrecognized sec tion and content) Blind Slat Stapling Machine Operator Relationship Specialty Start Date End Date Manny Banegas DO [address], [place] [id number] PCP - General 10/23/19 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 This clinical summary was aggregated from multiple sources. Caution should be exercised in using it in the provision of clinical care. This summary normalizes information from multiple sources, and as a consequence, information in this document may materially change the coding, format and clinical context of patient data. In addition, data may be omitted in some cases. CLINICAL DECISIONS SHOULD BE BASED ON THE PRIMARY CLINICAL RECORDS. [employer] [facility]. provides no warranty or guarantee of the accuracy or completeness of information in this document.
[2023-11-18 11:07] LABS: HPV APTIMA, High Risk Negative (Negative)
== END | disposition home or self-care (01) ==
LOC: LABSPEC 15:55
PROVIDERS: PCP Nurse Practitioner; Referring Provider Nurse Practitioner Women's Health; Visit Provider Nurse Practitioner Women's Health
DX: Z12.4 Encounter for screening for malignant neoplasm of cervix (principal)
CPT/HCPCS: 87624; 88175; G0145

== ENCOUNTER → 2023-11-15 | Outpatient (CLI) | payer OTHER, BC, SELFPAY ==
--- NOTE | 2023-11-15 15:21 | BI_ITS ---
MAMMOGRAPHY - BILATERAL SCREENING REASON FOR EXAM: Female, 38 years old. Routine annual screening examination. PERTINENT HISTORY: Grandmother with breast cancer. TECHNIQUE: Digital bilateral breast jes (3D mammographic acquisition) in the CC and MLO projections. 2-D mediolateral oblique (MLO) and craniocaudad (CC) views of both breasts were obtained. CAD: Full Field Digital Mammography with Computer Added Detection was performed. COMPARISON: None. Baseline examination. FINDINGS: Breast Composition: The breasts are heterogeneously dense, which may obscure small masses. There are no dominant masses or suspicious calcifications. No other significant abnormalities are identified. There has been no significant change since the prior study. BI/SCRN MAMM (CAD)W/JES BILAT IMPRESSION: Stable bilateral screening mammogram. Yearly follow-up mammogram recommended. (A) ASSESSMENT CATEGORY: BIRADS Category 1: Negative. A letter regarding these results will be sent to the patient by the facility within 30 days. Approximately 10% of breast cancers are not detected by mammography. A normal mammogram should not delay biopsy of a clinically suspicious abnormality. [id number] Electronically Signed: Manjit Wilkerson MD at 8:15 EST ,
== END | disposition home or self-care (01) ==
LOC: OPBI 15:21
PROVIDERS: PCP Family Medicine; Referring Provider Nurse Practitioner Women's Health; Visit Provider Nurse Practitioner Women's Health
DX: Z12.31 Encounter for screening mammogram for malignant neoplasm of breast (principal)
CPT/HCPCS: 77063; 77067

== ENCOUNTER → 2025-03-18 | Outpatient (CLI) | payer OTHER, SELFPAY ==
--- NOTE | 2025-03-18 16:04 | US_ITS ---
PROCEDURE: PELVIC W/ TRANSVAGINAL 03/18/2025 REASON FOR EXAM: HEAVY MENSES TECHNIQUE: PELVIC W/ TRANSVAGINAL COMPARISON: None FINDINGS: Uterus measures 8.9 x 5.4 x 4.0 cm. Retroflexed uterus. No discrete uterine masses. 4.7 mm endometrial stripe, within normal limits. Nabothian cysts are noted of the cervix. Right ovary measures 3.0 x 2.7 x 1.6 cm and left ovary measures 3.4 x 3.2 x 2.5 cm. Normal vasculature of bilateral ovaries. 2.7 x 3.3 x 1.1 cm cyst within left ovary. No free fluid within the cul-de-sac. Urinary bladder prevoid volume is 261 mL. US/Pelvic w/ Transvaginal IMPRESSION: No acute ovarian torsion. 3.3 cm left ovarian cyst. No acute process. Reading Location: [id number]
== END | disposition home or self-care (01) ==
LOC: US 16:02
PROVIDERS: PCP Family Medicine; Referring Provider Nurse Practitioner Women's Health; Visit Provider Nurse Practitioner Women's Health
DX: N92.0 Excessive and frequent menstruation with regular cycle (principal)
CPT/HCPCS: 76830; 76856

== ENCOUNTER → 2025-05-08 | Outpatient (CLI) | payer OTHER, SELFPAY | END | disposition home or self-care (01) | LOC: LAB 16:48 | PROVIDERS: PCP Family Medicine; Referring Provider Obstetrics & Gynecology; Visit Provider Obstetrics & Gynecology | DX: N92.0 Excessive and frequent menstruation with regular cycle (principal) | CPT/HCPCS: 36415; 84443 ==

== ENCOUNTER → 2025-06-15 | Outpatient (CLI) | payer OTHER, SELFPAY ==
--- NOTE | 2025-06-15 | EMB_PTH ---
PATIENT: ARNAUD PALMER LOC: [facility] U#:[id number] AGE/SX: 39/F ROOM: RE06/15/[address]: DOMINIC James : 1985 BED: DIS: 06/15/2025 SPEC #: [id number] RECD: 06/15/25 15:54 STATUS: ANNA REQ #: [id number] TYRONE: 06/15/25 00:[address]: Mckenzie Rojas NP DEPT: SURGICAL PATHOLOGY RECD BY: Sanjay Campoverde ENTERED: 06/16/25 10:37 SP TYPE: ENDOM BX/C AMBER DR: Dr. Dony Banegas DO Tissues: A - Endometrium, NOS Procedures: Surgery Specimen Level IV HEADER OPERATION: Endometrial biopsy PRE-OP DIAGNOSIS: Abnormal uterine bleeding TISSUE SUBMITTED: A- Endometrial lining MICROSCOPIC DIAGNOSIS A. Endometrium, biopsy: * Disordered proliferative endometrium. MICROSCOPIC DESCRIPTION Slides are reviewed. GROSS DESCRIPTION A. Received in formalin labeled the patient's name and date of is a 3.7 x 2.8 x 0.3 cm aggregate of red-brown tissue fragments and mucoid material. Entirely submitted in 2 cassettes. ID 06/16/2025 CPT:[id number]
== END | disposition home or self-care (01) ==
LOC: LABSPEC 16:14
PROVIDERS: PCP Family Medicine; Referring Provider Nurse Practitioner Women's Health; Visit Provider Nurse Practitioner Women's Health
DX: N93.9 Abnormal uterine and vaginal bleeding, unspecified (principal)
CPT/HCPCS: 88305

== ENCOUNTER 2025-06-30 09:07 | Day surgery (SDC) | payer OTHER, SELFPAY ==
--- NOTE | 2025-06-29 16:31 | HP.PCM_ITS ---
History and Physical Date of Admission: 06/30/25 Vital Signs 05/15/2515:27 06/15/2513:50 06/26/2516:16 06/26/2516:17 Height 5 ft 8 in 5 ft 8 in 5 ft 8 in 5 ft 8 in Weight: 246 lb 1 oz 245 lb BMI 37.4 37.2 BP 154/94 H 134/84 H Intake Visit Reasons: D&C Deneen Box Cutter Required: No Is patient in pain?: No Allergies cephalexin (From Keflex) Adverse Reaction (Mild, Verified 06/26/25 16:15) Upset Stomach Medications ?Medication ?Instructions ?Recorded ?Confirmed ?Type venlafaxine 150 mg 150 mg PO DAILY 06/22/23 06/26/25 Histor y capsule,extended release 24 hr Is last menstrual period known: Yes Last Menstrual Period: 05/07/25 Post menopausal: No Patient : No : No PFSH Medical History Wears contact lenses Alcohol use Low iron Easy bruising Back pain Shortness of breath on exertion Non-smoker Superfic phlebitis-leg Anemia Ulcerative colitis PTSD (post-traumatic stress disorder) Anxiety and depression Surgical History Hx of colonoscopy Hx of wisdom tooth extraction Hx of tonsillectomy H/O dilation and curettage Family History Father Cancer prostate Grandmother Breast cancer Social History Smoking Status: Never smoker alcohol intake: never substance use type: does not use caffeine: No what type of physical activity do you participate in: walking frequency: daily seatbelt use: always do you feel safe at home: Yes additional social history: is Kennedy 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 she has had bleeding every 28 days bleeding 4 days but changing a cup every 1 1/2 hours. she is wanting an ablation. she does not like hormones or medications, she and her fmaily do not take things. she had an ultrasund that was WNL. she still needs an EMB and tsh. Female Reproductive History Last Menstrual Period: 05/07/25 Menopausal Symptoms: No night sweats History 4 Elective abortions Hx Para 2 Spontaneous abortions Hx # Term Pregnancies Ectopic pregnancies Hx # Pregnancies Multiple births # of living children 3 Past Pregnancies Del. Date Name GA/Weeks Outcome Route Bth Weight Infant Gen Labor Lgth Anesthesia Del Locatn Provider FOB Unknown 2009 Melvi 40 live - full term NS VD Female Baugh Unknown 2012 Ryder 39 live - full term NS VD Female Baugh 02/04/18 Lolita 38 live - full term NS VD Female [facility] JOS[facility] Delivery Date: 02/04/18 Last Updated by: Miri LUCAS ROS Const Constitutional: Denies fatigue, night sweats, weight gain or weight loss ENT ENT: Reports system reviewed and no additional complaints, except as documented Cardio Card: Denies chest pain Resp Resp: Denies cough or dyspnea GI GI: Reports as per HPI; Denies abdominal pain, constipation, nausea or vomiting : Denies nipple discharge, urinary frequency, urinary incontinence, urinary hesitancy, urinary urgency, vaginal discharge, vaginal dryness, vaginal odor or vaginal pruritus Musc Musc: Denies arthralgias, back pain or muscle weakness Skin Skin/Breast: Denies alopecia, change in hair, dry skin, breast mass, breast pain, breast skin changes or nipple discharge Neuro Neuro: Reports system reviewed and no additional complaints, except as documented Psych Psych: Reports system reviewed and no additional complaints, except as documented Endo Endo: Denies cold intolerance, excessive sweating, heat intolerance or polydipsia Parvez/Lymph Hematologic/Lymphatic: Denies easy bleeding, Denies easy bruising and Denies lymphadenopathy Exam Const General: cooperative, healthy appearing, comfortable and no acute distress Orientation: alert [facility] Head: normal to inspection and normocephalic Ears: hearing grossly normal bilaterally and external ears normal Nose: external nose normal and nares normal Face and sinus: normal facial exam Neck Neck: normal visual inspection and no lymphadenopathy Thyroid: thyroid normal Chest Chest palpation & inspection: normal inspection of the chest Resp Effort & Inspection: normal respiratory effort Auscultation: clear to auscultation bilaterally Cardio Rate: regular rate Rhythm: regular rhythm Heart Sounds: S1 normal and S2 normal GI Inspection: normal to inspection and non-distended Palpation: soft and no hepatosplenomegaly Musc Other: gross motor intact no deficits, full bilateral strength Skin General: no rashes or lesions noted Neuro General: patient alert, patient awake, moves all extremities and no focal motor deficits Motor: muscle tone normal throughout Extrem General: normal to inspection and no pedal edema Psych Appearance: grossly normal Mental Status: mental status grossly normal Affect: normal affect Speech and Movement: speech and movement normal Coding Level of Care Code No Charge Diagnoses Menorrhagia with regular cycle N92.0 Assessment and Plan Assessment and Plan (1) Menorrhagia with regular cycle: Status: Acute Comment: US; prefers ablation over medications or IUD. needs tsh. plan d and c hysterosocpy deneen ablation and bilateral salpingectomy. EMB pending Plan After discussing the patient's diagnosis and treatment plan options, patient wishes to proceed with surgical management. I have discussed with the patient the risks, benefits, and alternatives of the procedure which include but are not limited to risks of anesthesia, bleeding, infection, possible damage to bowel, bladder, or surrounding vasculature which could lead to additional surgery to evaluate any complications. Patient agrees to procedure and wishes to proceed. ACOG/uptodate references given for additional information regarding procedure. 06/26/25 [id number] <Electronically signed by Melba Andrea MD>
[2025-06-30] VITALS (14 sets, daily range): BP systolic 140–177; BP diastolic 64–122; PULSE 50–115; RESP 16–20; TEMP 36.2–36.6; O2SAT 93–100; BMI 36.5
[2025-06-30 09:31] LABS: Internal QC Validated? YES +Cl - CLEAR BKGD; Pregnancy, Urine Negative Negative; Record Kit Lot#,Urine Preg 980607
[2025-06-30] MEDS: Lactated Ringers 1,000 ML 15 ML IV (09:49)
[2025-06-30 09:51] LABS: Hematocrit 43.6 % (37-47); Hemoglobin 14.3 g/dL (12.0-15.0); Mean Corp Hgb Conc 32.8 g/dL (32-36); Mean Corpuscular Volume 83.4 fL (81-99); Mean Platelet Vol. 10.0 fl (6.2-12.0); Platelet Count 346 K/mm3 (150-450); RBC Distribution Width CV 18.8 % (11.6-14.6); RBC Distribution Width SD 56.1 fl (35.1-43.9); Red Blood Count 5.23 M/mm3 (4.2-5.4); White Blood Count 8.3 K/mm3 (4.4-11.0)
--- NOTE | 2025-06-30 10:17 | PCM.PRE.AN2 ---
ASA Classification* ASA Classification ASA Classification: 2 Assessment & Plan Anesthesia* Anesthesia Assessment Anesthesia Assessment: Discussed sedation and/or anesthesia options, risks, benefits, and alternatives with patient/parents/legal guardian/POA. Questions invited. The patient/parents/legal guardian/POA seems to understand and agrees to proceed with anesthesia plan. Reviewed the physical assessment, medical history, allergy history and patient home medications list prior to surgery/procedure/anesthetic and documented any changes. Performed airway and anesthesia risk assessments. Anesthesia Type Anesthesia Type: MAC Anesthesia Focused Assessment* Temperature: 97.2 F Pulse Rate: 50 Blood Pressure: 149/90 Respiratory Rate: 16 Pulse Ox: 99 Airway Assessment Mouth opens: >3 cm Mallampati Score: II Labs Anesthesia Preop lab: CBC WBC, (4.4-11.0) 8.3 K/mm3 Today, 09:45 RBC, (4.2-5.4) 5.23 M/mm3 Today, 09:45 Hgb, (12.0-15.0) 14.3 g/dL Today, 09:45 Hct, (37-47) 43.6 % Today, 09:45 Plt Count, (150-450) 346 K/mm3 Today, 09:45 CHEMISTRY Potassium, (3.5-5.1) 3.7 mmol/L 02/03/18, 09:20 Sodium, (136-145) 139 mmol/L 02/03/18, 09:20 Magnesium, (1.6-2.6) 2.0 mg/dL 12/13/17, 17:15 BUN, (7-18) 12 mg/dL 02/03/18, 09:20 Creatinine, (0.55-1.02) 0.68 mg/dL 02/03/18, 09:20 Glucose, (74-106) 106 mg/dL 02/03/18, 09:20 TSH, (0.300-4.200) 3.200 uIU/mL 05/08/25, 16:54 COAG PT, (11.7-14.9) 13.0 SECONDS 01/15/18, 06:20 HCG, Quant, (<9 non-preg) 798345 mIU/mL H 07/09/17, 16:51 Urine Test Negative Negative Today, 09:20 Tst Clinic Negative 06/15/25, 13:55 Pre-Assessment Diagnosis/Proposed Procedure Planned Operative Procedure(s): HYSTEROSCOPY D&C DAFNE,LAP SALPINGECTOMY Anesthesia History Anesthesia History - body hanger: Anesthesia History - body hanger Hx Hospitalization No 06/22/25 16:18 Any Problems With Anesthesia No 06/22/25 16:18 Cholinesterase deficiency No 06/22/25 16:18 You/Your Family Experience No 06/22/25 16:18 fever (hyperthermia) with Relationship Recent Exposure to Contagious Disease Does patient have nerve No 06/22/25 16:18 stimulator Patient instructed to have device shut off --Does patient have Pacemaker No 06/30/25 09:34 or ICD? When Was Last Pacemaker Check QUESTION #4 FULL TEXT: You/Your Family Experience fever (hyperthermia) with Anesthesia Last Oral Intake Last Oral intake: Last Oral Intake NPO since 07:30 06/30/25 09:34 Meds taken in AM with sips of Yes 06/30/25 09:34 water? Meds patient instructed to see med list 06/30/25 09:34 take am of surgery PONV PONV - body hanger: PONV - body hanger Female Yes 06/22/25 16:18 HX of Motion Sickness No 06/22/25 16:18 HX of N/V After Surgery No 06/22/25 16:18 Non-Smoker Yes 06/22/25 16:18 Duration of Surgery greater No 06/22/25 16:18 than 60 minutes Number of Risk Factors 2 06/22/25 16:18 PONV Score Moderate Risk 06/22/25 16:18 Height & Weight Height & Weight: Anesthesia: Height & Weight Height 5 ft 8 in 06/30/25 09:34 Weight: 109 kg 06/30/25 09:34 Body Mass Index (BMI) 36.5 06/30/25 09:34 Respiratory Assessment Respiratory Assessment - body hanger: Respiratory Tract Infection Hx - body hanger Hx Respiratory Tract Infection No 06/22/25 16:18 STOP Sleep Apnea STOP Sleep Apnea - body hanger: STOP Sleep Apnea - body hanger Hx Hypertension No 06/22/25 16:18 Hx Sleep Apnea No 06/22/25 16:18 CPAP BIPAP Do you snore loudly (louder Yes 06/22/25 16:18 than talking or can be heard Do you often feel tired/ Yes 06/22/25 16:18 fatigued/ sleepy during daytime? Has anyone observed you stop No 06/22/25 16:18 breathing during sleep? STOP Results Positive 06/22/25 16:18 QUESTION #5 FULL TEXT : Do you snore loudly (louder than talking or can be heard through closed doors)? 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 Specify any problems Hx of Preganancy in last 3 No 06/22/25 16:18 Months Nurse Filling Out Transfusion DSCHRIBER 06/22/25 16:18 & Questions: Date: 06/22/25 06/22/25 16:18 Time: 16:19 06/22/25 16:18 Patient unable to answer at this time (ie. confused, unrespo /Reproduction History /Reproductive History - body hanger: /Reproductive Hx- body hanger Hx Now No 06/22/25 16:18 Gestational Age (in weeks): EDC: Hx Hx Para Hx Section SAB No 06/26/25 16:17 Active Medications Active Medications: Current Medications Generic Name Dose Route Start Last Admin Trade Name Freq PRN Reason Stop Dose Admin Lactated Ringer's 1,000 mls @ 15 mls/hr 06/30/25 09:30 06/30/25 09:49 IV 15 mls/hr .Q48H ELIEL Administration PFSH Medical History Wears contact lenses Alcohol use Low iron Easy bruising Back pain Shortness of breath on exertion Non-smoker Superfic phlebitis-leg Anemia Ulcerative colitis PTSD (post-traumatic stress disorder) Anxiety and depression Home Medications ?Medication ?Instructions ?Recorded ?Last Taken ?Type venlafaxine 150 mg 150 mg PO DAILY 06/22/23 Unknown History capsule,extended release 24 hr Allergy/AdvReac Type Severity Reaction Status Date / Time cephalexin (From Keflex) AdvReac Mild Upset Verified 06/30/25 09:33 Stomach Family History Father Cancer prostate Grandmother Breast cancer Surgical History Hx of colonoscopy Hx of wisdom tooth extraction Hx of tonsillectomy H/O dilation and curettage Social History Smoking Status: Never smoker alcohol intake: never substance use type: does not use caffeine: No what type of physical activity do you participate in: walking frequency: daily seatbelt use: always do you feel safe at home: Yes additional social history: is Kennedy 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
[2025-06-30] MEDS: Midazolam 2 MG/2 ML Syringe IV (10:48)
[2025-06-30] MEDS: Lidocaine 1% (5 ml sdv) 5 ML Vial IV (10:57)
--- NOTE | 2025-06-30 11:00 | EMB_PTH ---
PATIENT: ARNAUD PALMER LOC: [facility] – [place] U#:[id number] AGE/SX: 39/F ROOM: RE06/30/[address]: Dr. Melba Andrea MD : 1985 BED: DIS: 06/30/2025 SPEC #: [id number] RECD: 06/30/25 14:26 STATUS: ANNA REJack #: [id number] TYRONE: 06/30/25 11:[address]: Melba Andrea DEPT: SURGICAL PATHOLOGY RECD BY: Sanjay Campoverde ENTERED: 06/30/25 14:59 SP TYPE: ENDOM BX/C AMBER DR: Dr. Dony Banegas DO Tissues: A - Endometrium, NOS B - Fallopian tube Procedures: Surgery Specimen Level II Surgery Specimen Level IV HEADER OPERATION: Hysteroscopy, D&C, laparoscopic bilateral salpingectomy PRE-OP DIAGNOSIS: Menorrhagia with regular cycle, Cul De Sac adhesions TISSUE SUBMITTED: A- Endometrial curettings, B- Right and left fallopian tubes MICROSCOPIC DIAGNOSIS A. Endometrium, curettage: * Extensively fragmented endometrium with shedding stroma, consistent with menstrual phase. * Fragments of lower uterine segment, endocervical mucosa, and scant squamous cervical epithelium. B. Fallopian tubes, bilateral salpingectomy: * Endometriosis x1. * Complete luminal cross-section confirmed x2. MICROSCOPIC DESCRIPTION Slides are reviewed. GROSS DESCRIPTION Received in 2 formalin containers labeled with the patient's name and date of . Designated as: A. Endometrial curettings is a 3.8 x 2.7 x 0.4 cm aggregate of dark red clotted blood and apparent tissue. Entirely submitted in 2 cassettes. B. Right and left fallopian tube are 2 undesignated, pink-red fimbriated fallopian tubes, 2.5 x 0.6 cm and 6.1 x 0.8 cm. There is a 0.5 cm paratubal cyst involving the shorter tube. Cryogenics Repairer sections are submitted in 2 cassettes as follows: B1: [place] fallopian tubeB2: Longer fallopian tube SC 06/30/2025 CPT:[id number]
[2025-06-30] MEDS: fentaNYL 100 MCG/2 ML Ampul 200 MCG IV (11:47)
[2025-06-30] MEDS: Ketorolac 30 MG/ML Syringe IV (12:17)
--- NOTE | 2025-06-30 12:56 | PCM.POST.ANE ---
Anesthesia: Postop Eval I Current Vital Signs Temperature: 98 F Pulse Rate: 113 Blood Pressure: 158/64 Respiratory Rate: 20 Pulse Ox: 96 Oxygen Delivery Method: Nasal Cannula Oxygen Flow Rate (L/min): 2 Assessment Airway patent: Yes Spontaneous unlabored respirations: Yes Mental status: Awake nausea: No Vomiting: No Anesthesia Complication: No Fluid Hydration Crystalloid volume administer (ml): 1,200 Total IV fluid infused: 1,200 Progress Note Anesthesia document: Postop Eval 1 completed: Yes
--- NOTE | 2025-06-30 13:10 | POSTOPAN2_ITS ---
Anesthesia Postop Eval I Sum Postop Eval Completion status Anesthesia document: Postop Eval 1 completed: Yes Anesthesia Postop Eval I Summary Anesthesia Postop Eval I Summary: Anesthesia Postop Eval I: Assessment Summary Airway patent Yes 06/30/25 12:57 [email or web address] Spontaneous unlabored Yes 06/30/25 12:57 [email or web address] respirations Mental status Awake 06/30/25 12:57 [email or web address] nausea No 06/30/25 12:57 [email or web address] Vomiting No 06/30/25 12:57 [email or web address] Anesthesia Postop Eval I: Fluid Summary Crystalloid volume administer 1,200 06/30/25 12:57 [email or web address] (ml) Colloids volume administered ( ml) Blood Product volume administered (ml) Total IV fluid infused 1,200 06/30/25 12:57 [email or web address] Anesthesia Postop Eval I: Summary Notes Anesthesia Complication No 06/30/25 12:57 [email or web address] Anesthesia Complication Comment: Post-operative progress note Anesthesia: Postop Eval II Evaluation Mental status: Awake Pain Level: 0 nausea: No Vomiting: No
--- NOTE | 2025-06-30 13:10 | PCM.POSTANE2 ---
Anesthesia Postop Eval I Sum Postop Eval Completion status Anesthesia document: Postop Eval 1 completed: Yes Anesthesia Postop Eval I Summary Anesthesia Postop Eval I Summary: Anesthesia Postop Eval I: Assessment Summary Airway patent Yes 06/30/25 12:57 PLATFORM SOFTWARE [email or web address] Spontaneous unlabored Yes 06/30/25 12:57 PLATFORM SOFTWARE [email or web address] respirations Mental status Awake 06/30/25 12:57 PLATFORM SOFTWARE [email or web address] nausea No 06/30/25 12:57 PLATFORM SOFTWARE [email or web address] Vomiting No 06/30/25 12:57 PLATFORM SOFTWARE [email or web address] Anesthesia Postop Eval I: Fluid Summary Crystalloid volume administer 1,200 06/30/25 12:57 PLATFORM SOFTWARE [email or web address] (ml) Colloids volume administered ( ml) Blood Product volume administered (ml) Total IV fluid infused 1,200 06/30/25 12:57 PLATFORM SOFTWARE [email or web address] Anesthesia Postop Eval I: Summary Notes Anesthesia Complication No 06/30/25 12:57 PLATFORM SOFTWARE [email or web address] Anesthesia Complication Comment: Post-operative progress note Anesthesia: Postop Eval II Evaluation Mental status: Awake Pain Level: 0 nausea: No Vomiting: No
--- NOTE | 2025-06-30 13:29 | DCINST_ITS ---
Discharge Instructions DC O2, CPAP, BIPAP needs Home O2 Discharge instructions: No Dressing / Incision Discharge Activity: Return to Normal Activity, May Not Drive ( while taking narcotic pain meds, when pain free), May Shower and May Take a Tub Bath (in 7 days) May resume sexual activity in: 1 week Weight Bearing Status: Full weight bearing Dressing / Incision Call your doctor if your incision/area has: Continuous Slow Oozing, Sudden Increased Bleeding, Increased Pain/ Swelling, Increased Redness and Foul Smelling Discharge Call your doctor if you observe: Fever of 101 or Higher, Using more than 1 pad per hour, Shortness of breath, Chest pain and Uncontrolled pain Suture Line Care: Avoid Pulling/Pushing and Avoid Pinching/Bending Remove Dressing in: 1 week (if present) Cleanse incision/area with: Soap & Water and Keep Dressing Clean & Dry Follow Up Care When: Call to make an appointment with your doctor for a fu/incision check in 1- 2 weeks. Test Results: Test results from this visit will be discussed in further detail at your follow- up appointment, if applicable. Discharge Plan Admission Attending Provider: Melba Andrea Primary Care Provider: Dony Banegas Instructions Print Language: Telugu Discharge Orders/Prescriptions Prescriptions: New oxycodone-acetaminophen [Percocet] 5-325 mg tablet 1 tab PO Q4H PRN (Reason: pain) 7 Days Qty: 10 0RF naproxen 500 mg tablet 500 mg PO BID PRN PRN (Reason: Pain) Qty: 30 1RF No Action venlafaxine 150 mg capsule,extended release 24hr 150 mg PO DAILY Referrals / Follow Up: Dony Banegas DO [Primary Care Provider, Family Practice] Disposition Disposition (needs filled in before D/C Order can be placed): Home, Self Care
--- NOTE | 2025-06-30 13:29 | OP.PCM_ITS ---
Multi Select Codes Urinary/Genital Urinary/Genital CPT Codes: 04908 Deneen/Novasure and 70787 Laproscopic BS/O Operative Report (Standard) Operative Information Date of Procedure: 06/30/25 Pre-Operative Diagnosis: see problem list Post-Operative Diagnosis: same Surgery/Procedure Performed: Laparoscopic bilateral salpingectomy D&C hysteroscopy Deneen. cert occupational therapy asst: Yes Glazing Machine Operator: Zana Huggins Tasks completed by temporary administrative assistant: Opening & closing, Altering tissue and Insert Trochanter Additional shop assistant?: No Type of Anesthesia: General RN Documented Start/Stop Times: Operation Date: 06/30/25 11:00 Case Time Into Pre-Op 06/30/25 09:17 Out of Pre-Op 06/30/25 10:45 Anesthesia Start 06/30/25 10:49 Into Room 06/30/25 10:49 Procedure Start 06/30/25 11:21 Procedure End 06/30/25 12:43 Anesthesia End 06/30/25 12:49 Out of Room 06/30/25 12:49 Into Recovery 06/30/25 12:53 Procedure Start Time: 11:21 Procedure Stop Time: 12:43 Select all DRAINS/GRAFTS/IMPLANTS that apply: None Estimated Blood Loss: 100 Specimen collected: Yes Description of specimen(s) removed: emc and tubes Description of surgery: Patient was taken in the operating room and was placed under general anesthesia was prepped and draped in normal sterile fashion in the dorsal lithotomy position. Bladder was drained of clear urine and SCDs were on preoperatively. Hysteroscope was used to visualize the lining of the uterus and sharp curettage was performed tissue sent for analysis. Deneen ablation was performed after passed the safety integrity test with a cavity length of 5 cm there was a default 002 code and therefore the device was swapped out and a new device was placed which then passed the safety code and was able to perform the entire ablation without complication. Uterus was sounded and a uterine manipulator was placed after dilating. Attention was then paid to the abdominal portion of the procedure and the umbilicus was elevated with towel clamps and injected with Marcaine and after a 5 mm incision was made and the Veress needle was entered into the abdomen unable to be confirmed intra-abdominal therefore was converted to a Merritt technique. Patient was found to have a hernia at the umbilicus which the incision was made through the hernia sac and area. . Abdomen was insufflated with CO2 gas and a 12mm trocar was placed under direct visualization. Left and right lower quadrant 5 mm ports were placed under direct visualization. Uterus was well visualized and upon inspection of the pelvis was noted to have significant scarring with the left fallopian tube adherent to the adnexa and part of the sigmoid colon adherent to the left ovarian cul-de-sac. Due to the patient's body habitus limited visualization of the pelvis was present. Right fallopian tube was removed without difficulty but only the fimbria portion of the left fallopian tube was removed the rest of the tube was unable to be removed due to dense scar tissue that was unable to be taken down do for fear of injury to bowel or the remaining uterine tissue.. Exc ellent hemostasis was noted in the pelvis. Liver and upper abdomen were visualized notably within normal limits and no other gross abnormalities were seen in the abdomen. Umbilicus was closed with 0 Vicryl's part of the hernia was noted to still be present at the umbilicus. All instruments removed from the abdomen after gas was desufflated. Port sites were closed with 3-0 Monocryl Steri's and op sites were applied. All instruments removed from the vagina and patient was awoken and taken recovery in stable condition. Surgical Findings: Dense adhesions in the left adnexa and sigmoid colon on the left side. Complications Complications: No
[2025-06-30 15:29] LABS: Hematocrit 45.4 % (37-47); Hemoglobin 14.4 g/dL (12.0-15.0); Mean Corp Hgb Conc 31.7 g/dL (32-36); Mean Corpuscular Volume 85.2 fL (81-99); Mean Platelet Vol. 10.3 fl (6.2-12.0); Platelet Count 366 K/mm3 (150-450); RBC Distribution Width CV 19.0 % (11.6-14.6); RBC Distribution Width SD 57.3 fl (35.1-43.9); Red Blood Count 5.33 M/mm3 (4.2-5.4); White Blood Count 17.4 K/mm3 (4.4-11.0)
[2025-06-30] MEDS: HYDROcodone Bitartrate/Apap 5/325 Tablet PO (15:42)
== END 2025-06-30 16:33 | disposition home or self-care (01) ==
LOC: SDC 09:07 → AC 09:12
PROVIDERS: Anesthesiology; PCP Family Medicine; Referring Provider Obstetrics & Gynecology; Visit Provider Obstetrics & Gynecology
PROC: 0U5B8ZZ Destruction of Endometrium, Via Natural or Artificial Opening Endoscopic (ICD-10-PCS; CPT 58558; principal; 2025-06-30 10:45)
PROC: (CPT 58661; 2025-06-30 10:45)
DX: N80.9 Endometriosis, unspecified (principal); N92.0 Excessive and frequent menstruation with regular cycle; K42.9 Umbilical hernia without obstruction or gangrene
CPT/HCPCS: 58661; 58563; 00840; 81025; 85027; 86850; 86900; 86901; 88302; 88305; J2405